=== PATIENT | female | born 1955 | race Caucasian/White ===

== ENCOUNTER 2017-06-25 10:29 | Emergency (ER) | payer MEDICARE, MEDICAID ==
[~2017-06-25] VITALS: Ht 152.4 cm; Wt 68.0 kg
[~2017-06-25 10:29] MED LIST: CROM13SP5 NAS; IBUP-1484 PO; OMEP-110 PO; ONDA4TAB7 PO; OXYC-306 PO; [UNRECOGNIZED DRUG - CODE]
[2017-06-25 12:11] LABS: BASOPHILS # (AUTO) 0.06 x10^3/uL (0-0.1); BASOPHILS % (AUTO) 1 % (0-1); EOSINOPHILS % (AUTO) 3 % (1-7); LYMPHOCYTES # (AUTO) 1.75 x10^3/uL (1-3.4); LYMPHOCYTES % (AUTO) 27 % (22-44); MD NO; MEAN CORPUSCULAR HEMOGLOBIN 32.9 pg (27.0-34.8); MEAN CORPUSCULAR HGB CONC 34.2 g/dL (32.4-35.8); MEAN CORPUSCULAR VOLUME 96.2 fL (80-100); MEAN PLATELET VOLUME 8.4 fL (7.4-10.4); MONOCYTES # (AUTO) 0.52 x10^3/uL (0.2-0.8); MONOCYTES % (AUTO) 8 % (2-9); NEUTROPHILS # (AUTO) 3.89 x10^3/uL (1.8-6.8); NEUTROPHILS % (AUTO) 61 % (42-75); PLATELET COUNT 254 x10^3/uL (130-400); RED CELL DISTRIBUTION WIDTH 13.7 % (9.6-15.2)
[2017-06-25 12:16] LABS: INTERNATIONAL NORMALIZED RATIO 0.98 (0.93-1.1); PROTHROMBIN TIME 10.2 Seconds (9.6-11.5)
[2017-06-25 12:21] LABS: ALANINE AMINOTRANSFERASE 24 U/L (12-78); ALBUMIN 3.5 g/dL (3.4-5.0); ANION GAP 6 mmol/L (5-15); CALCIUM 9.1 mg/dL (8.5-10.1); CHLORIDE 107 mmol/L (98-107)
[2017-06-25 12:26] LABS: ALKALINE PHOSPHATASE 74 U/L (45-117); BILIRUBIN,TOTAL 0.5 mg/dL (0.2-1.0); CREATININE 0.69 mg/dL (0.55-1.02); TOTAL PROTEIN 7.7 g/dL (6.4-8.2)
[2017-06-25 13:58] VITALS: BP 122/58
== END 2017-06-25 14:03 | disposition home or self-care (01) ==
LOC: ED 13:45
DX: R05 Cough (principal); S50.12XA Contusion of left forearm, initial encounter; I10 Essential (primary) hypertension; X58.XXXA Exposure to other specified factors, initial encounter; Y93.89 Activity, other specified; Y99.8 Other external cause status; Y92.89 Other specified places as the place of occurrence of the external cause
CPT/HCPCS: 36415; 71046; 80053; 83880; 85025; 85610; 93005; 99285

== ENCOUNTER 2018-01-16 10:18 | Emergency (ER) | payer MEDICARE, MEDICAID ==
[~2018-01-16] VITALS: Ht 152.4 cm; Wt 72.7 kg
[2018-01-16 10:29] VITALS: BP 120/66
[2018-01-16] MEDS ORDERED: IBUPROFEN 200 MG TABLET PO ONE (11:00)
[2018-01-16] MEDS ORDERED: IBUPROFEN 200 MG TABLET ONE (11:03)
== END 2018-01-16 11:53 | disposition home or self-care (01) ==
LOC: ED 11:40
DX: G89.11 Acute pain due to trauma (principal); M25.512 Pain in left shoulder; M25.522 Pain in left elbow; W01.0XXA Fall on same level from slipping, tripping and stumbling without subsequent striking against object, initial encounter; Y93.89 Activity, other specified; Y92.009 Unspecified place in unspecified non-institutional (private) residence as the place of occurrence of the external cause; Y99.8 Other external cause status
CPT/HCPCS: 99283

== ENCOUNTER 2018-07-18 01:32 | Emergency (ER) | payer MEDICARE, MEDICAID ==
[~2018-07-18] VITALS: Ht 165.1 cm; Wt 70.7 kg
--- NOTE | 2018-07-18 01:37 | NUR ---
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
[2018-07-18 01:40] VITALS: BP 140/80
--- NOTE | 2018-07-18 01:48 | NUR ---
PT TO ROOM AWAITING ERP AND TEST RESULTS.
--- NOTE | 2018-07-18 02:15 | NUR ---
PT MEDICATED ORDERED.
[2018-07-18] MEDS ORDERED: KETOROLAC 30 MG/1 ML ONE (02:28)
[2018-07-18] MEDS ORDERED: KETOROLAC 30 MG/1 ML IM ONE (02:30)
== END 2018-07-18 04:00 | disposition home or self-care (01) ==
LOC: ED 03:42
DX: G89.11 Acute pain due to trauma (principal); M25.512 Pain in left shoulder; M25.522 Pain in left elbow; W11.XXXA Fall on and from ladder, initial encounter; Y93.89 Activity, other specified; Y92.009 Unspecified place in unspecified non-institutional (private) residence as the place of occurrence of the external cause; Y99.8 Other external cause status
CPT/HCPCS: 73030; 73080; 96372; 99283; J1885

== ENCOUNTER 2020-05-25 11:04 | Outpatient (CLI) | payer MEDICARE, MEDICAID ==
[~2020-05-25 11:04] MED LIST changes: -IBUP-1484 PO; +IBUP-1902 PO; -OXYC-306 PO; +OXYC1TAB17 PO
[2020-05-25] MEDS ORDERED: calcium PO (12:04)
[2020-05-25] MEDS ORDERED: [UNRECOGNIZED DRUG - REMARK] (12:04)
[2020-05-25] MEDS ORDERED: DIPH25CA61 PO (12:04)
[2020-05-25] MEDS ORDERED: melatonin PO (12:04)
[2020-05-25] MEDS ORDERED: vitamin c PO (12:04)
[2020-05-25] MEDS ORDERED: DULO30CA2 PO (12:04)
[2020-05-25] MEDS ORDERED: DICL100G25 TP (12:04)
[2020-05-25] MEDS ORDERED: HYDR-3248 PO (12:04)
[2020-05-25] MEDS ORDERED: fish oil PO (12:04)
[2020-05-25] MEDS ORDERED: CHRO1TAB6 PO (12:04)
[2020-05-25] MEDS ORDERED: ALBU8.5H8 INH (12:04)
[2020-05-25] MEDS ORDERED: vitamin e PO (12:04)
== END 2020-05-25 23:59 | disposition home or self-care (01) ==
LOC: STAR 11:04
PROVIDERS: ATTEND Surgery
DX: Z01.818 Encounter for other preprocedural examination (principal); Z20.822 Contact with and (suspected) exposure to COVID-19
CPT/HCPCS: 93005; U0003

== ENCOUNTER 2020-05-31 07:45 | Day surgery (SDC) | payer MEDICARE, MEDICAID ==
[~2020-05-31] VITALS: Ht 149.9 cm; Wt 70.2 kg
[~2020-05-31 07:45] MED LIST changes: +ALBU8.5H8 INH; +BUPIVACAINE/PF 0.5% ONE; +CHRO1TAB6 PO; +DICL100G25 TP; +DIPH25CA61 PO; +DULO30CA2 PO; +EPINEPHRINE 1 MG/ML, 1ML ONE; +HYDR-3248 PO; +[UNRECOGNIZED DRUG - REMARK]; +calcium PO; +fish oil PO; +melatonin PO; +vitamin c PO; +vitamin e PO
[2020-05-31 08:28] VITALS: BP 134/79
[2020-05-31] MEDS ORDERED: CHLORHEXIDINE 15 ML UDC PO ONE (08:30)
[2020-05-31] MEDS ORDERED: LACTATED RINGERS 1,000 ML IV SCH (08:30)
[2020-05-31] MEDS ORDERED: ROCURONIUM 10MG/ML,5ML ONE (10:13)
[2020-05-31] MEDS ORDERED: FENTANYL PF 250 MCG/5ML ONE (10:13)
[2020-05-31] MEDS ORDERED: PROPOFOL 10 MG/ML, 20ML ONE (10:13)
[2020-05-31] MEDS ORDERED: DEXAMETHASONE 4 MG/ML, 5ML ONE (10:13)
[2020-05-31] MEDS ORDERED: MIDAZOLAM 1 MG/ML, 2ML ONE (10:13)
[2020-05-31] MEDS ORDERED: SCOPOLAMINE 1MG PATCH TD ONE (10:14)
[2020-05-31] MEDS ORDERED: CEFAZOLIN 1,000 MG ONE ×2 (10:16)
[2020-05-31] MEDS ORDERED: SUCCINYLCHOLINE 20 MG/ML, 10ML ONE (10:23)
[2020-05-31] MEDS ORDERED: SCOPOLAMINE 1MG PATCH TD SCH (10:30)
[2020-05-31] MEDS ORDERED: GLYCOPYRROLATE 0.2MG/1ML, 5ML ONE (10:47)
[2020-05-31] MEDS ORDERED: NEOSTIGMINE 1 MG/ML, 10ML ONE (10:47)
[2020-05-31] MEDS ORDERED: ONDANSETRON 2MG/ML, 2ML ONE ×2 (10:50)
[2020-05-31] MEDS ORDERED: HYDROmorphone 1 MG/ML, 1ML INJ IVPush PRN (11:00)
[2020-05-31] MEDS ORDERED: EPHEDRINE 50 MG/ML, 1ML IVPush PRN (11:00)
[2020-05-31] MEDS ORDERED: PROMETHAZINE 12.5 MG SUPP PR PRN (11:00)
[2020-05-31] MEDS ORDERED: hydrALAzine 20 MG/ML, 1ML IV PRN (11:00)
[2020-05-31] MEDS ORDERED: PROMETHAZINE 25 MG/ML, 1ML IVPush PRN (11:00)
[2020-05-31] MEDS ORDERED: ONDANSETRON 2MG/ML, 2ML IVPush PRN (11:00)
[2020-05-31] MEDS ORDERED: DIPHENHYDRAMINE 50 MG/ML, 1ML IVPush PRN ×2 (11:00)
[2020-05-31] MEDS ORDERED: LABETALOL 5MG/ML, 20ML IV PRN (11:00)
[2020-05-31] MEDS ORDERED: MIDAZOLAM 1 MG/ML, 2ML IV PRN (11:00)
[2020-05-31] MEDS ORDERED: MEPERIDINE/PF 25MG/0.5ML IVPush PRN (11:00)
[2020-05-31] MEDS ORDERED: FENTANYL PF 100 MCG/2ML IV PRN (11:00)
[2020-05-31] MEDS ORDERED: ACETAMINOPHEN 325 MG TABLET PO PRN (11:00)
[2020-05-31] MEDS ORDERED: ALBUTEROL SULFATE 2.5 MG/3 ML NPPB PRN (11:00)
[2020-05-31] MEDS ORDERED: DIAZEPAM 5 MG/ML, 2ML IVPush PRN (11:00)
[2020-05-31] MEDS ORDERED: OXYcodone 5 MG/5 ML ORAL.SOL UDC PO PRN (11:00)
[2020-05-31] MEDS ORDERED: FENTANYL PF 100 MCG/2ML ONE (11:10)
[2020-05-31] MEDS ORDERED: OXYcodone 5 MG/5 ML ORAL.SOL UDC ONE (11:10)
[2020-05-31] MEDS ORDERED: ACETAMINOPHEN 650 MG/20.3 ML UDC ONE (11:10)
== END 2020-05-31 14:30 | disposition home or self-care (01) ==
LOC: OUT 07:45
PROVIDERS: ATTEND Surgery
DX: K80.10 Calculus of gallbladder with chronic cholecystitis without obstruction (principal); M19.90 Unspecified osteoarthritis, unspecified site; F32.9 Major depressive disorder, single episode, unspecified; G43.909 Migraine, unspecified, not intractable, without status migrainosus; G47.33 Obstructive sleep apnea (adult) (pediatric); Z88.8 Allergy status to other drugs, medicaments and biological substances; Z88.5 Allergy status to narcotic agent; Z90.49 Acquired absence of other specified parts of digestive tract; Z98.51 Tubal ligation status; Z98.890 Other specified postprocedural states; Z79.899 Other long term (current) drug therapy; Z72.89 Other problems related to lifestyle
CPT/HCPCS: 47562; 88304; J0171; J0690; J1100; J2250; J2405; J2704; J2710; J3010; J7120; J0330